=== PATIENT | female | born 1935 | race Caucasian/White ===

== ENCOUNTER 2017-02-03 19:29 | Inpatient (IN) | payer OTHER ==
--- NOTE | ~2017-02-03 | EKG ---
PATIENT: TASIA TRISTAN UNIT #: [id number] Ventricular Rate: 212 BPM Atrial Rate: 220 BPM QRS Duration: 74 ms Q-T Interval: 200 ms QTC Calculation(Bezet): 375 ms Calculated R [place]: 31 degrees Calculated T [place]: 100 degrees Diagnosis Line: Supraventricular tachycardia Diagnosis Line: Marked ST abnormality, possible lateral Diagnosis Line: subendocardial injury Diagnosis Line: Abnormal ECG Diagnosis Line: No previous ECGs available Diagnosis Line: Confirmed by NEIL ISRAEL MD ([id number]) on Diagnosis Line: 02/04/2017 7:09:37 PM INTERPRETING MD: JHONATAN MOSLEY
--- NOTE | ~2017-02-03 | EKG ---
PATIENT: TASIA TRISTAN UNIT #: [id number] Ventricular Rate: 125 BPM Atrial Rate: 125 BPM P-R Interval: 144 ms QRS Duration: 78 ms Q-T Interval: 308 ms QTC Calculation(Bezet): 444 ms P [place]: 65 degrees Calculated R [place]: 30 degrees Calculated T [place]: 34 degrees Diagnosis Line: Sinus tachycardia Diagnosis Line: Otherwise normal ECG Diagnosis Line: When compared with ECG of 17-JUL-2013 15:18, Diagnosis Line: No significant change was found Diagnosis Line: Confirmed by NEIL ISRAEL MD ([id number]) on Diagnosis Line: 02/04/2017 7:09:49 PM INTERPRETING MD: JHONATAN MOSLEY
--- NOTE | ~2017-02-03 | DS ---
Unit #: [id number] #: [id number] Patient: TASIA AKHTAR [id number] [address] [address] [id number] I MR#: [id number] NAME: TASIA AKHTAR. ROOM: 340 Age: 81 Sex: F Admission Date: 02/03/2017 : 1935 Discharge Date: 02/04/2017 Attending Physician: Leroy Falk M.D. Primary Care Physician: German Mcelroy M.D. DISCHARGE SUMMARY ADMITTING DIAGNOSES 1. SVT. 2. Urinary tract infection. 3. Iron deficiency anemia. 4. Hypertension. 5. Hyperlipidemia. 6. History of peptic ulcer disease. DISCHARGE DIAGNOSES 1. Supraventricular tachycardia, now sinus rhythm/sinus tachycardia. 2. Urinary tract infection. 3. Iron deficiency anemia. 4. Hypertension. 5. Hyperlipidemia. 6. History of peptic ulcer disease. DIAGNOSTIC STUDIES IMAGING: Chest x-ray, which shows suspected ugpsrdye-xa-axuzc esophageal hiatal hernia with stable mild cardiac enlargement. PERTINENT LABS DURING HOSPITALIZATION: Sodium 141, potassium 4.2, glucose 85, BUN 9, creatinine 0.7. Cholesterol 236, triglycerides 59, LDL 170, HDL 54. TSH 1.71. Hemoglobin 12.9, hematocrit 39.3, platelets 163 and white blood cell count 9.6. Magnesium 1.8. Troponin less than 0.05 x2. HOSPITAL COURSE Ms. Akhtar is an 81-year-old female who was out having alcoholic beverages with her granddaughter last night at a bar when her granddaughter noticed altered mental status. EMS was called, and she was brought to [facility] where she was found to be in SVT with rates over 200. She was given adenosine and converted to a sinus rhythm/sinus tachycardia. She has had no recurrence of SVT. She has been complaining of frequent urination and some severe burning every time she urinates. She is being treated now for a urinary tract infection. Her urinalysis and culture are pending. Further recommendations for possible change in treatment will be made after culture is evaluated. She is feeling well currently with no complaints besides the burning with urination, and her altered mental status has resolved. Dr. Falk has evaluated and feels as though she is ready for discharge today with no further cardiac intervention needed. A two-D echocardiogram has been ordered and is pending at this time. Those results are not available as of yet. DISCHARGE MEDICATIONS Unit #: [id number] #: [id number] Patient: TASIA AKHTAR 1. Lyrica 200 mg b.i.d. 2. Cymbalta 30 mg b.i.d. 3. Vytorin 10/80 mg 1 tablet q.h.s. 4. Valium 5 mg b.i.d. as needed for anxiety. 5. Lortab 10/325 mg 1 tab b.i.d. as needed for pain. 6. Amoxicillin 500 mg t.i.d. x7 days. DISCHARGE INSTRUCTIONS 1. Diet: Regular diet. 2. Activity: As tolerated. FOLLOW-UP 1. Next followup visit will be with Dr. Falk in the next 2-4 weeks. 2. She may follow up with her primary care physician, also, in the next 2-4 weeks or as needed. 3. She will be treated today with 1 gram of IV Rocephin prior to discharge. I will review her urine culture results tomorrow and make changes in her antibiotic if needed for coverage for her urinary tract infection. 4. Her two-D echocardiogram will be read by Dr. Falk, and those results will be communicated at the followup visit or sooner if major abnormalities are noted. Dictated by... Berna Kline A.P.R.N. for Oscar Posey/catrachita TD: 02/05/2017 10:42 JOB #: [id number] DISCHARGE SUMMARY Page 1 of 1 X X DISCHARGE SUMMARY
--- NOTE | ~2017-02-03 | CR72 ---
[facility] A Service of [facility] & [facility] RADIOLOGY TEXT RESULTS PATIENT: TASIA TRISTAN LOCATION: [facility] 340- : 35 UNIT #: [id number] AGE: [address]: Leroy Falk MD SEX: F ORDER DR: [id number] [facility] [address] [facility]. [place], [place] [address] [id number] I MR#: [id number] Acc #: [id number] NAME: TASIA TRISTAN. : 1935 SEX: F STUDY DATE/TIME: 02/03/2017 21:09 UNIT: [address] ROOM: [facility] STUDY DESCRIPTION: CR Chest Single View Portable Attending Physician: Leroy Falk M.D. Ordering Physician: Ed Doctor [id number] [facility] Primary Care Physician: German Mcelroy M.D. MEDICAL IMAGING REPORT This report is preliminary unless electronic signature is present EXAM AP portable chest, 02/03/2017 HISTORY Hypotension, tachycardia, acute mental status changes, weakness and shortness of breath today. No documented injury. COMPARISON PA and lateral chest, 07/21/2015 FINDINGS Stable cardiomegaly. Suspected olzziiyd-mu-amuvt hiatal hernia. No acute airspace disease, pleural effusion or pneumothorax is identified. Transcutaneous pacer pad overlies the right lower chest. IMPRESSION 1. Suspected moderate to large esophageal hiatal hernia, similar to the 2015 examination. 2. Stable mild cardiac enlargement. 3. No acute airspace disease. Dictated by... Seble Martinez M.D. THIS IS AN ELECTRONICALLY VERIFIED REPORT Seble Martinez M.D. at 02/04/2017 10:06 AM Torito TD: 02/04/2017 09:01 JOB #: [id number] MEDICAL IMAGING REPORT Page 1 of 1 COPY
--- NOTE | ~2017-02-03 | HP ---
Unit #: [id number] #: [id number] Patient: TASIA AKHTAR [id number] [facility]. [place], [place] [address] [id number] I MR#: [id number] NAME: TASIA AKHTAR. ROOM: 340 Age: 81 Sex: F Admission Date: 02/03/2017 : 1935 Attending Physician: Leroy Falk M.D. Primary Care Physician: German Mcelroy M.D. HISTORY AND PHYSICAL CHIEF COMPLAINT Altered mental status with SVT. HISTORY OF PRESENT ILLNESS Ms. Tasia Akhtar is an 81-year-old female with no prior cardiac history. She does not recall ever having any prior cardiac testing. She states that she remembers being cold yesterday but, otherwise, has no recollection of why she is in the hospital. She is accompanied by her granddaughter who gives the history. The granddaughter was with her yesterday evening. She states that they had met for a few drinks at a bar. She states that when her grandmother arrived, she noticed that she was a little "off" and as time went on she started to slur her words and repeat things inappropriately. She states that she got up to leave and was very unsteady. She states that she also was very cold. They took her outside to try to warm her up and she was so confused that they called 911. She notes that her speech at that time was not understandable. She is accompanied by her granddaughter during my interview. The granddaughter is actually getting on Wednesday and the patient insists on being discharged today. Upon arrival to the emergency room, she was noted to be in SVT with a rate of 212. She was given adenosine and converted to a sinus rhythm. She remains in a sinus tachycardia currently with no symptoms. PAST MEDICAL HISTORY Includes: 1. Peptic ulcer disease. 2. Hyperlipidemia. 3. Hypertension. 4. Chronic kidney disease stage 2. 5. Low back sciatica pain, chronic. 6. Lipoma mass removed in 2012 from back. 7. 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 8. Peripheral neuropathy. ALLERGIES No known drug allergies. HOME MEDICATIONS They include: 1. Lyrica 200 mg twice daily. 2. Cymbalta 30 mg twice daily. 3. Vytorin 10/80, one tablet q. h.s. 4. Lortab 10/325, one tablet twice a day. 5. Valium 5 mg twice a day p.r.n. Unit #: [id number] #: [id number] Patient: TASIA AKHTAR SOCIAL HISTORY She denies ever using tobacco. She states that she drinks alcohol socially and last night had one beer prior to the event as described above. Denies the use of drugs. FAMILY HISTORY She has two sisters and two daughters that have with cancer. Her mother and father with old age. REVIEW OF SYSTEMS GENERAL: Denies any fever, flu-like symptoms or unintentional weight loss but states that she did remember feeling very cold yesterday. SKIN: Denies any rashes, ulcerations or wounds. HEADACHE: Currently. EYES: Denies any sudden change of vision. EARS: Denies any sudden change in hearing. BLEEDING: Denies epistaxis, hemoptysis, hematuria or melena. THROAT: Denies any problems swallowing. LUNGS: Denies any wheeze, cough or shortness of breath. CHEST: Denies any pain, palpitations, tachycardia, PND or orthopnea. GI: Denies any nausea, vomiting, No diarrhea, constipation or change in stools. GENITOURINARY: Positive for burning and frequency this morning. EXTREMITIES: Denies any swelling or increased pain with walking. SPINE: Not assessed. NEURO: Positive for numbness and tingling in bilateral feet and unsteadiness last night with no falls. PHYSICAL EXAMINATION VITAL SIGNS: Blood pressure is 112/51, heart rate 91, respirations 20, temperature 98.8, 90% oxygenated on room air. 168 pounds. GENERAL: Well developed, well nourished white female in no acute distress, resting in the chair. SKIN: No rashes or ulcerations noted. EYES: PERRLA. No xanthelasma. ORAL: Good dentition. Moist mucous membranes. No pallor. NECK: No carotid bruits auscultated bilaterally. No jugular vein distention. SPINE: No scoliosis. CHEST: Clear to auscultation bilaterally. No wheezes, rales or rhonchi. CARDIAC: S1 and S2. No murmur, rub, gallop or lift. ABDOMEN: Soft, nontender. Positive bowel sounds. EXTREMITIES: Bilateral pedal pulses +2. No edema. NEURO: Alert and oriented x3. Speech is clear. No obvious neuro deficits. DIAGNOSTIC STUDIES LABORATORY: Sodium 141, potassium 4.2, glucose 85, BUN 9, creatinine 0.7, cholesterol 239, triglycerides 59, LDL 170, HDL 54, TSH 1.71. Hemoglobin 12.9, hematocrit 39.3, platelets 163, white blood cell count 9.6. Troponin less than 0.05 x2, point of care. Magnesium 1.8, PT 10.7, INR 1.0. Unit #: [id number] #: [id number] Patient: TASIA AKHTAR IMAGING: Chest x-ray shows suspected moderate to large esophageal hiatal hernia similar to 2015 with stable mild cardiac enlargement. IMPRESSION 1. Supraventricular tachycardia, now sinus tach. 2. Urinary tract infection. 3. Iron deficiency anemia with a stable H and H. 4. Hypertension. 5. Hyperlipidemia. 6. History of peptic ulcer disease. PLAN We will complete a urinalysis with culture if indicated. We will check a 2D echocardiogram that has currently been ordered and pending. We will continue her home medications and plan on discharging later today if above mentioned testing allows. Dictated by Isabel FlorezRClaraNClara for Leroy Falk M.D. ZEESHAN/elham TD: 02/04/2017 10:54 JOB #: [id number] HISTORY AND PHYSICAL Page 1 of 1 X X HISTORY AND PHYSICAL
[~2017-02-03 19:29] MED LIST: ARTHROTEC 501 TAB.EC PO; DARVOCET-N 1001 TAB PO; DIAZEPAM PO; FERROUS SULFATE PO; FLEXERIL10 M1 PO; GABAPENTIN300 MG PO; MEDROL4 MG/DOSE- PO; MOBIC PO; NEUPRO1 EAC1 TD; NEURONTIN PO; NORCO 5/325 TAB1 TAB PO; PERCOCET5/325 PO; PRILOSEC PO; TRAMADOL HCL50 M2 PO; VIT B12; VYTORIN 10/80 T1 TAB PO; VYTORIN PO
[2017-02-03 20:06] LABS: POC - CKMB 1.8 ng/mL (0.0-7.9); POC - TROPONIN <0.05 ng/mL (<=0.05)
[2017-02-03 20:12] LABS: BASOPHIL# 0.1 X10e3 (0-0.3); BASOPHIL% 0.8 % (0-2.5); EOSINOPHIL# 0.1 X10e3 (0-0.7); EOSINOPHIL% 0.7 % (0.0-7.0); HEMOGLOBIN 12.7 gm/dL (12.0-16.0); LYMPHOCYTE# 1.1 X10e3 (1.0-3.5); LYMPHOCYTE% 12.1 % (17.0-45.0); MEAN CELL VOLUME 82.9 FL (83-96); MEAN CORPUSCULAR HEMOGLOBIN 27.1 PG (28-34); MEAN CORPUSCULAR HGB CONC 32.7 g/dL (30-36); MEAN PLATELET VOLUME 8.2 FL (6.5-11.5); MONOCYTE# 0.4 X10e3 (0-1.0); MONOCYTE% 4.6 % (3.0-12.0); NEUTROPHIL# 7.5 X10e3 (1.5-7.1); NEUTROPHIL% 81.8 % (40-75); PLATELET COUNT 151 X10e3 (140-420); RED CELL DISTRIBUTION WIDTH 14.2 % (11.0-15.5); WHITE BLOOD COUNT 9.2 X10e3 (4.0-10.5)
[2017-02-03 20:23] LABS: DIFF IND NO
[2017-02-03 20:33] LABS: PARTIAL THROMBOPLASTIN TIME 23.9 SECONDS (23.5-31.3); PROTHROMBIN TIME (PATIENT) 10.7 SECONDS (9.6-11.5)
[2017-02-03 20:37] LABS: BUN/CREATININE RATIO 14.44; CALCIUM SERUM 9.2 mg/dL (8.4-10.2); CREATININE SERUM 0.9 mg/dL (0.6-1.4); POTASSIUM 3.8 mmol/L (3.5-5.1)
[2017-02-03 21:46] LABS: POC - CKMB <1.0 ng/mL (0.0-7.9); POC - TROPONIN <0.05 ng/mL (<=0.05)
[2017-02-04] MEDS ORDERED: LYRICA PO (01:07)
[2017-02-04] MEDS ORDERED: VYTORIN 10-801 EACH PO (01:08)
[2017-02-04] MEDS ORDERED: CYMBALTA30 M1 PO (01:08)
[2017-02-04] MEDS ORDERED: LORTAB 10-3251 EACH PO (01:10)
[2017-02-04] MEDS ORDERED: DIAZEPAM PO (01:11)
[2017-02-04 06:50] LABS: HEMATOCRIT 39.3 % (35.0-45.0); HEMOGLOBIN 12.9 gm/dL (12.0-16.0); MEAN CELL VOLUME 84.5 FL (83-96); MEAN CORPUSCULAR HEMOGLOBIN 27.8 PG (28-34); MEAN CORPUSCULAR HGB CONC 32.8 g/dL (30-36); MEAN PLATELET VOLUME 8.3 FL (6.5-11.5); RED BLOOD COUNT 4.66 X10e (3.90-5.30); RED CELL DISTRIBUTION WIDTH 14.6 % (11.0-15.5); WHITE BLOOD COUNT 9.6 X10e3 (4.0-10.5)
[2017-02-04 10:00] LABS: BUN/CREATININE RATIO 12.85; CALCIUM SERUM 8.8 mg/dL (8.4-10.2); CREATININE SERUM 0.7 mg/dL (0.6-1.4); GLOM FILT RATE Estimated 81.3 mL/min (>60); POTASSIUM 4.2 mmol/L (3.5-5.1)
[2017-02-04 16:05] LABS: URINE SOURCE CLEAN CATCH
[2017-02-04] MEDS ORDERED: AMOXICILLIN500 M1 PO (16:07)
[2017-02-04 16:10] LABS: URINE APPEARANCE CLEAR; URINE BILIRUBIN NEG (NEG); URINE BLOOD 2+ (NEG); URINE COLOR YELLOW; URINE GLUCOSE NEG (NEG); URINE KETONE NEG (NEG); URINE LEUKOCYTE ESTERASE 3+ (NEG); URINE NITRATE POS (NEG); URINE PH 5.5 (5-8); URINE PROTEIN 1+ (NEG); URINE SPECIFIC GRAVITY 1.008 (1.003-1.035); URINE UROBILINOGEN 0.2 MG/DL (NEG)
[2017-02-04 16:12] LABS: CULTURE INDICATED? YES; URINE BACTERIA AUWI 4+ (NEGATIVE); URINE SQUAMOUS EPITHELIAL CELL NONE SEEN /[HPF]; UWBCS1 AUWI 50-100 (0-5)
== END 2017-02-04 17:49 | disposition home or self-care (01) | DRG 309 ==
LOC: CED 19:29 → C3A PCU 21:25 → CEDOF 21:25 → CED 21:34 → CEDOF 21:34 → C3A PCU 22:40
PROVIDERS: Emergency Medicine; Nurse Practitioner Family
PROC: B24BZZZ Ultrasonography of Heart with Aorta (ICD-10-PCS; principal; 2017-02-04)
DX: I47.1 Supraventricular tachycardia (principal); N39.0 Urinary tract infection, site not specified; I12.9 Hypertensive chronic kidney disease with stage 1 through stage 4 chronic kidney disease, or unspecified chronic kidney disease; D50.9 Iron deficiency anemia, unspecified; N18.2 Chronic kidney disease, stage 2 (mild); E78.5 Hyperlipidemia, unspecified; R41.82 Altered mental status, unspecified; Z80.9 Family history of malignant neoplasm, unspecified
CPT/HCPCS: 36415; 71010; 80048; 80061; 81003; 82553; 83036; 83735; 84443; 84484; 85025; 85027; 85610; 85730; 87086; 87088; 87186; 93005; 93306; 96361; 96374; 96375; 99291; G0480; J0153; J0696

== ENCOUNTER 2017-02-08 12:39 | Emergency (ER) | payer OTHER ==
--- NOTE | ~2017-02-08 | EKG ---
PATIENT: TASIA TRISTAN UNIT #: [id number] Ventricular Rate: 76 BPM Atrial Rate: 76 BPM P-R Interval: 140 ms QRS Duration: 76 ms Q-T Interval: 426 ms QTC Calculation(Bezet): 479 ms P [place]: 57 degrees Calculated R [place]: 28 degrees Calculated T [place]: 40 degrees Diagnosis Line: Normal sinus rhythm Diagnosis Line: Normal ECG Diagnosis Line: When compared with ECG of 03-FEB-2017 20:04, Diagnosis Line: Vent. rate has decreased BY 49 BPM Diagnosis Line: Confirmed by KENIA VIRK MD ([id number]) on Diagnosis Line: 02/08/2017 10:56:12 PM INTERPRETING MD: CARMEN
[~2017-02-08 12:39] MED LIST changes: +AMOXICILLIN500 M1 PO; +CYMBALTA30 M1 PO; +LORTAB 10-3251 EACH PO; +LYRICA PO; +VYTORIN 10-801 EACH PO
[2017-02-08 14:09] LABS: BASOPHIL% 0.4 % (0-2.5); EOSINOPHIL% 1.3 % (0.0-7.0); HEMATOCRIT 37.7 % (35.0-45.0); HEMOGLOBIN 12.8 gm/dL (12.0-16.0); LYMPHOCYTE% 26.3 % (17.0-45.0); MEAN CELL VOLUME 80.9 FL (83-96); MEAN CORPUSCULAR HEMOGLOBIN 27.5 PG (28-34); MEAN CORPUSCULAR HGB CONC 33.9 g/dL (30-36); MEAN PLATELET VOLUME 7.6 FL (6.5-11.5); MONOCYTE# 0.5 X10e3 (0-1.0); MONOCYTE% 11.8 % (3.0-12.0); NEUTROPHIL# 2.3 X10e3 (1.5-7.1); NEUTROPHIL% 60.2 % (40-75); PLATELET COUNT 206 X10e3 (140-420); RED BLOOD COUNT 4.66 X10e (3.90-5.30); WHITE BLOOD COUNT 3.9 X10e3 (4.0-10.5)
[2017-02-08 14:12] LABS: DIFF IND NO
[2017-02-08 14:24] LABS: ALBUMIN SERUM 3.5 g/dL (3.5-5.0); BILIRUBIN, DIRECT 0.1 mg/dL (0.0-0.2); BILIRUBIN,INDIRECT 0.7 mg/dL (0.0-0.9); BILIRUBIN,TOTAL 0.8 mg/dL (0.2-2.0); CALCIUM SERUM 9.1 mg/dL (8.4-10.2); CREATININE SERUM 0.6 mg/dL (0.6-1.4); GLOM FILT RATE Estimated 85.5 mL/min (>60); POTASSIUM 3.8 mmol/L (3.5-5.1); PROTEIN TOTAL SERUM 7.1 g/dL (6.0-8.3)
[2017-02-08 15:47] LABS: URINE SOURCE CLEAN CATCH
[2017-02-08 15:55] LABS: URINE APPEARANCE CLEAR; URINE BILIRUBIN NEG (NEG); URINE BLOOD TRACE (NEG); URINE COLOR YELLOW; URINE GLUCOSE NEG (NEG); URINE KETONE NEG (NEG); URINE LEUKOCYTE ESTERASE 1+ (NEG); URINE NITRATE NEG (NEG); URINE PROTEIN NEG (NEG); URINE SPECIFIC GRAVITY 1.014 (1.003-1.035)
[2017-02-08 15:56] LABS: CULTURE INDICATED? YES; URINE BACTERIA AUWI NEG (NEGATIVE); URINE SQUAMOUS EPITHELIAL CELL FEW /[HPF]
== END 2017-02-08 17:45 | disposition home or self-care (01) ==
LOC: CED 12:39
PROVIDERS: Emergency Medicine
DX: R55 Syncope and collapse (principal); N39.0 Urinary tract infection, site not specified; Z90.710 Acquired absence of both cervix and uterus; Z79.2 Long term (current) use of antibiotics; Z79.899 Other long term (current) drug therapy
CPT/HCPCS: 36415; 80048; 80076; 81003; 83605; 85025; 87040; 87086; 93005; 96365; 99284